=== PATIENT | female | born 2000 | race Caucasian/White ===

== ENCOUNTER 2022-01-22 08:53 | Outpatient (CLI) | payer BC ==
[~2022-01-22] VITALS: Ht 172.7 cm; Wt 120.0 kg
--- NOTE | 2022-01-22 09:00 | NUR ---
Pt arrived on unit ambulatory and with concerns for possible ROM. Pt reports increased leaking/discharge this morning and was concerned since it was clear when she wiped in the bathroom. Pt denies any regular contractions or vaginal bleeding and reports normal movement. EFM and toco monitors started. Vital signs WNL. SVE by this RN FT//3 with negative amniotrace. Roles on the unit. See physician notification for details.
[2022-01-22] MEDS ORDERED: PRENATAL (09:27)
[2022-01-22 09:41] VITALS: BP 119/67; PULSE 88; TEMP 98.5
== END 2022-01-22 09:55 | disposition home or self-care (01) ==
LOC: LDRO 08:53
DX: O42.913 Preterm premature rupture of membranes, unspecified as to length of time between rupture and onset of labor, third trimester (principal); Z3A.37 37 weeks gestation of pregnancy